=== PATIENT | female | born 1975 | race Caucasian/White ===

== ENCOUNTER → 2017-12-05 | Day surgery (SDC) | payer OTHER ==
[~2017-12-05] VITALS: Ht 149.9 cm; Wt 64.5 kg
[~2017-12-05] MED LIST: ADVA250A INH; ALBUAER3 INH; BUPIVACAINE LIPOSOME PF 1.3% 20 ML VIAL ONE; CHLORHEXIDINE GLUCONATE 2 % 1 PACK (2 CLOTHS) TOPICAL PRN; CIPR0.3S RIGHT EAR; CLIN300C5 PO; CLON0.1T PO; FLUT50SP EACH NARE; IBUP-232 PO; KETOROLAC TROMETHAMINE 30 MG/ML (IVP) VIAL ONE; LACTATED RINGER'S 1000 ML IV PRN; METOPROLOL TARTRATE 25 MG TAB PO PRN; MIDAZOLAM HCL 2 MG/2 ML VIAL ONE; MONT10TA4 PO; POVIDONE IODINE 5% (ANTISEPSIS KIT) 4 APPLICATIONS EACH NARE PRN; PRED5TAB PO; PROPOFOL 200 MG/20 ML AMP ONE; SODIUM CHLORID 0.9% 500 ML IV PRN; TRAM50 PO; ZITHTAB PO
[2017-12-05 11:38] VITALS: TEMP 98
--- NOTE | 2017-12-05 11:48 | MP ---
cc: Mina Pérez MD DATE OF OPERATION: 12/05/2017 SURGEON: Mina Pérez MD. PREOPERATIVE DIAGNOSIS: Adhesive capsulitis of the right shoulder. POSTOPERATIVE DIAGNOSIS: No orthopedic abnormality. Pain right shoulder with stiffness. DETAILS OF THE PROCEDURE: The patient was placed under adequate anesthetic with Diprivan by the anesthesiologist, following which the right shoulder was manipulated in all directions beginning with flexion. All range of motion and was found to be within normal limits with no sign to suggest any residual adhesive capsulitis. Full active and passive range of motion was obtained. The patient tolerated the procedure well and went to the recovery room in satisfactory condition. Mina Pérez MD RAMSES/YANELY , 11:36 AM , 11:47 AM
[2017-12-05 12:40] VITALS: BP 176/102; PULSE 75; RESP 16; O2SAT 98
== END | disposition home or self-care (01) ==
LOC: PHSDC 08:29
PROVIDERS: ATTEND Orthopaedic Surgery
DX: M75.01 Adhesive capsulitis of right shoulder (principal)
CPT/HCPCS: 01620; 23700; 64415; C9290; J1885; J2250; J7120